=== PATIENT | female | born 1975 | race Caucasian/White ===

== ENCOUNTER 2020-06-22 06:43 | Emergency (ER) | payer OTHER ==
[2020-06-22 07:25] LABS: HEMOGLOBIN 13.7 gm/dl (12.3-15.3); RED BLOOD COUNT 4.4 M/UL (4.00-5.10); WHITE BLOOD COUNT 9.1 K/UL (4.5-11.0)
[2020-06-22 07:50] LABS: BUN/CREATININE RATIO 17 (0-10)
== END 2020-06-22 11:20 | disposition home or self-care (01) ==
LOC: ER1 06:43
PROVIDERS: Student in an Organized Health Care Education/Training Program
DX: R07.89 Other chest pain (principal); I10 Essential (primary) hypertension; Z90.710 Acquired absence of both cervix and uterus; Z20.822 Contact with and (suspected) exposure to COVID-19
CPT/HCPCS: 0240U; 71045; 80053; 82550; 82553; 82803; 83690; 83874; 84439; 84443; 84484; 85025; 85379; 93005; 96374; 96375; 99285; J1885; J2405